=== PATIENT | male | born 1965 | race Caucasian/White ===

== ENCOUNTER 2025-05-03 16:15 | Outpatient (RCR) | payer OTHER, SELFPAY ==
[2025-04-25 08:38] VITALS: BP 120/62; PULSE 79; RESP 16; O2SAT 99
[2025-04-25 08:58] VITALS: PULSE 79
== END 2025-05-23 13:42 | disposition home or self-care (01) ==
LOC: ANHCPREHAB 16:15
PROVIDERS: Visit Provider Internal Medicine Cardiovascular Disease
DX: Z98.61 Coronary angioplasty status (principal); Z51.89 Encounter for other specified aftercare
CPT/HCPCS: 93798